=== PATIENT | female | born 1955 | race Two or more races ===

== ENCOUNTER 2024-02-23 09:52 | Emergency (ER) | payer MEDICAID, SELFPAY ==
[2024-02-23 10:37] VITALS: BP 144/87; PULSE 72; RESP 17; TEMP 36.6; O2SAT 98; BMI 27.1
--- NOTE | 2024-02-23 10:57 | PD.EDRME ---
Rapid Medical Screening Exam RME Arrival date/time: 02/23/24 09:52 68-year-old female presents emergency department with complaints lower pelvic pain that radiates into her flank area. Patient does report that that a couple days ago she did have a biopsy unsure if bladder or uterus. Since then she has not been feeling well. I have greeted and performed a focused initial assessment of this patient. Initial appropriate labs ordered at this time. A comprehensive ED assessment and evaluation of the patient and analysis of all test and completion of medical decision making process will be conducted by additional ED provider. Chief Complaint: Urogenital-Female Time Seen by Provider: 02/23/24 10:18 Vital signs: Vital Signs Temperature 97.9 F 02/23/24 10:37 Pulse Rate 72 02/23/24 10:37 Respiratory Rate 17 02/23/24 10:37 Blood Pressure 144/87 H 02/23/24 10:37 Pulse Oximetry (%) 98 02/23/24 10:37 Oxygen Delivery Method Room Air 02/23/24 10:37
--- NOTE | 2024-02-23 11:01 | XR_ITS ---
Examination: Pelvic ultrasound, transabdominal, complete Technique: Transabdominal ultrasound of the pelvis performed using grayscale imaging Date and time of exam: February 23, 2024 1206 hrs. Indications: Onset of pelvic pain beginning one day ago Findings: Uterus 9.4 x 3.9 x 5.7 cm Uterine body 21 x 25 mm mass Hyperechoic mass in the endometrium 5 x 4 mm Endometrial sign 0.9 cm Right ovary 2.4 x 2.2 cm arterial flow Left ovary 2.4 x 2.1 cm arterial flow No fluid in the cul-de-sac Impression: Uterine body area of fibroid degeneration Likely small endometrial polyp Negative for ovarian torsion
[2024-02-23 11:22] LABS: Basophils # (Auto) 0.1 Thou/mm3 (0.0-0.2); Basophils % (Auto) 1 % (0-2.5); Eosinophils # (Auto) 0.1 Thou/mm3 (0.0-0.5); Eosinophils % (Auto) 1 % (0-10); Hematocrit 40.2 % (36.0-46.0); Hemoglobin 13.1 g/dL (12.0-16.0); Immature Granulocytes % (Auto) 0 % (0-0); Immature Granulocytes Auto 0.02 Thou/mm3 (0.00-0.00); Lymphocytes # (Auto) 2.1 Thou/mm3 (1.0-4.8); Lymphocytes % (Auto) 26 % (10-50); Mean Corpuscular HGB Conc 32.6 g/dl (31.0-37.0); Mean Corpuscular Hemoglobin 25.7 pg (25.0-35.0); Mean Corpuscular Volume 79 fL (80-100); Monocytes # (Auto) 0.6 Thou/mm3 (0.0-0.8); Monocytes % (Auto) 7 % (0-12); Neutrophils # (Auto) 5.4 Thou/mm3 (1.8-7.7); Neutrophils % (Auto) 65 % (37-80); Nucleated Red Blood Cell % 0 /100 WBC (0); Platelet Count 326 Thou/mm3 (140-440); RDW Standard Deviation 35.7 fL (36.4-46.3); White Blood Count 8.3 Thou/mm3 (3.6-11.0)
[2024-02-23 11:40] LABS: Collection Type, Urine Clean Catch; Squamous Epithelial Cell,Urine 0 /hpf (0-5)
[2024-02-23 11:43] LABS: Alanine Aminotransferase 19 U/L (10-49); Albumin, Serum 4.9 gm/dL (3.4-4.8); Albumin/Globulin Ratio 1.4 (1.2-2.2); Alkaline Phosphatase 84 U/L (46-116); Anion Gap 7 (7-16); Aspartate Amino Transferase 23 U/L (0-34); BUN/Creatinine Ratio 13 Ratio (12-20); Bilirubin,Total 1.4 mg/dL (0.3-1.2); Blood Urea Nitrogen 10 mg/dL (9-23); Calcium 9.5 mg/dL (8.3-10.6); Calcium (Corrected) 9.5 mg/dL (8.5-10.1); Carbon Dioxide 28.5 mMol/L (20.0-31.0); Chloride 102 mMol/L (98-107); Creatinine (Component) 0.8 mg/dL (0.6-1.3); Estimated Creatinine Clearance 62.1 mL/min (>60); Globulin 3.5 gm/dL (2.3-3.5); Glucose 103 mg/dL (74-106); Osmolality,Calculated 272 (275-295); Potassium 3.8 mMol/L (3.4-5.1); Sodium 137 mMol/L (136-145); Total Protein 8.4 gm/dL (5.7-8.2); eGFR > 60 See Note
[2024-02-23 12:17] LABS: Bacteria,Urine Rare; Bilirubin,Urine Negative (Negative); Blood,Urine 2+ (Negative); Clarity,Urine Clear (Clear/Hazy); Color,Urine Colorless (Lt Yel-Yel); Glucose, Urine Negative (Negative); Ketones,Urine Negative (Negative); Leukocyte Esterase,Urine Positive (Negative); Nitrite,Urine Negative (Negative); Protein,Urine Negative (Neg - Trace); RBC,Urine 1 /hpf (0-3); Specific Gravity,Urine 1.004 (1.001-1.035); Transitional Epi Cells,Urine < 1 /hpf (0-5); Urobilinogen,Urine Negative mg/dL (0.0-1.0); WBC,Urine 18 /hpf (0-5)
--- NOTE | 2024-02-23 15:50 | EDNOTE_ITS ---
ED Female Urogenital RME/HPI General Chief complaint: Urogenital-Female Stated complaint: urinary infection. pain since yesterday Time Seen by Provider: 02/23/24 10:18 Arrival date/time: 02/23/24 09:52 Limitations: no limitations RME / HPI RME / HPI Narrative: 02/23/24 09:52 68-year-old female presents emergency department with complaints lower pelvic pain that radiates into her flank area. Patient does report that that a couple days ago she did have a biopsy unsure if bladder or uterus. Since then she has not been feeling well. I have greeted and performed a focused initial assessment of this patient. Initial appropriate labs ordered at this time. A comprehensive ED assessment and evaluation of the patient and analysis of all test and completion of medical decision making process will be conducted by additional ED provider. DR. PASCUAL ERNANDEZ ED EVALUATION: 68-year-old female with a history of frequent UTIs, presents to the Emergency Department with complaint of dysuria starting last night and a urinary tract infection. She notes a biopsy of her bladder that was done approximately two months ago in [place] with her primary care doctor to assess why she gets frequent UTIs . She denies vaginal bleeding or vaginal discharge. Her last menstrual period was over 20 years ago, but she said she was a very heavy bleeder during those times and would bleed for several days. She denies fevers or sweats. She notes that she is traveling to [facility] for two months in a couple of days and just wants to make sure she has antibiotics if she needs. Related Data Allergies Allergy/AdvReac Type Severity Reaction Status Date / Time No Known Allergies Allergy Verified 02/23/24 09:54 Review of Systems Review of Systems Systems Reviewed: All systems reviewed, normal except as documented Narrative Review of Systems: GEN: No fever, no chills, no weight loss EYES: No discharge, no visual changes, no pain HEENT: No ear pain, no congestion, no sore throat PULM: No shortness of breath, no cough, no congestion CV: No chest pain, no dyspnea on exertion, no palpitations GI: No nausea, no vomiting, no diarrhea, no pain, no constipation : + dysuria, + UTI MUSC/SKEL: No joint pain, no back pain SKIN: No rash PSYCH: No hallucinations, no depression HEME/LYMPH: No easy bleeding or bruising tendencies NEURO: No weakness, no headache Past Medical History Social History SMOKING STATUS: Never smoker SUBSTANCE USE: does not use ALCOHOL: Never Past Medical History Comments PMH COMMENT: Frequent UTIs ED Exam General Limitations: Present no limitations General appearance: Present alert and in no apparent distress Head Head exam: Present atraumatic, normocephalic and normal inspection Eye Eye exam: Present normal appearance, PERRL and EOMI ENT ENT exam: Present normal exam, normal oropharynx and mucous membranes moist Neck Neck exam: Present normal inspection, full ROM and trachea midline Chest Chest inspection: Present normal inspection and symmetric chest wall rise Respiratory Respiratory exam: Present normal lung sounds bilaterally Cardiovascular Cardiovascular exam: Present regular rate, normal rhythm and normal heart sounds Abdominal Exam Abdominal exam: Present soft and normal bowel sounds Extremities Exam Extremities exam: Present normal inspection and full ROM Back Exam Back exam: Present normal inspection and full ROM Neurological Exam Neurological exam: Present alert, oriented X3 and CN II-XII intact Psychiatric Psychiatric exam: Present normal affect and normal mood Skin Skin exam: Present warm, dry, intact and normal color Course Quality Measures none Orders Category Date Time Status US pelvic complete Stat Exams 02/23/24 11:01 Completed CBC Stat Lab 02/23/24 11:14 Completed CMP [Comprehensive Metabolic Panel] Stat Lab 02/23/24 11:14 Completed Urinalysis Stat Lab 02/23/24 11:18 Completed Urine Culture Stat Lab 02/23/24 11:18 Completed Vital Signs Vital signs: Vital Signs Temperature 97.9 F 02/23/24 10:37 Pulse Rate 72 02/23/24 10:37 Respiratory Rate 17 02/23/24 10:37 Blood Pressure 144/87 H 02/23/24 10:37 Pulse Oximetry (%) 98 02/23/24 10:37 Oxygen Delivery Method Room Air 02/23/24 10:37 Urogenital - Female MDM Narrative MDM Narrative:: ICindy am scribing for and in the presence of Dr. Sharma. Patient data External records reviewed:: None (no previous visits) Clinical information provided by:: patient Social determinants that could affect healthcare access:: none Patient has the following chronic illnesses:: History of frequent UTIs, had a biopsy of her bladder that was done approximately two months ago in [place] with her primary care doctor to assess why she gets frequent UTIs . How is presenting disease/condition affected by chronic disease/condition?: exacerbated by Evaluation data The following diagnostics were reviewed and interpreted by me:: lab results and radiology exam(s) Lab and/or radiology exams considered but not ordered:: none Interpretation Summary: Procedure(s): US pelvic complete Accession Number(s): [id number] cc: Victor Hugo Diego MD; NO PRIMARY/FAMILY,PHYSICIAN; Joanna Warner~ Examination: Pelvic ultrasound, transabdominal, complete Technique: Transabdominal ultrasound of the pelvis performed using grayscale imaging Date and time of exam: February 23, 2024 1206 hrs. Indications: Onset of pelvic pain beginning one day ago Findings: Uterus 9.4 x 3.9 x 5.7 cm Uterine body 21 x 25 mm mass Hyperechoic mass in the endometrium 5 x 4 mm Endometrial sign 0.9 cm Right ovary 2.4 x 2.2 cm arterial flow Left ovary 2.4 x 2.1 cm arterial flow No fluid in the cul-de-sac Impression: Uterine body area of fibroid degeneration Likely small endometrial polyp Negative for ovarian torsion Dictated By: Victor Hugo Diego MD Medications / Prescriptions Medications or Prescriptions considered but not ordered:: none Medication administrations:: none Consultations Consultation(s) initiated? (list below): No Diagnosis Urogenital Female Differential Diagnosis: urinary tract infection, bacterial vaginosis, cystitis and other (UTI) Most likely diagnosis given after review of the tests above:: Dysuria Chronic female pelvic pain Admission Indicated Admission indicated?: not indicated Admission Request Was there a request for admission?: No Disposition Plan Disposition Plan: Discharge Discharge Attestation Discharge Attestation: The patient and all family members were given an opportunity to ask questions and understood the discharge instructions. Discharge instructions specifically effects, indications for sooner follow up or return to the emergency department, and the expected course of current diagnosis. Patient condition: Stable Discharge Plan Plan Patient Disposition: HOME (Self Care) Prescriptions/Referrals Referrals: No Primary/Family,Physician [Primary Care Provider] - In 1 week Problem List Clinical Impression: Dysuria, Chronic female pelvic pain Patient/Caregiver Discharge Instructions Education Materials: ED Dysuria, Uncertain Cause (Adult) Additional Instructions: Follow-up with your primary doctor in 2-3 days if symptoms are not improving. You can return to the emergency department sooner symptoms worsen or if you notice any new, concerning issues. Print Language: Turkmen Stand Alone Forms: Stephanie Award Info., Patient Portal Info Letter
--- NOTE | 2024-02-23 15:53 | PC.NURSE ---
PT HERE WITH URINARY SYMPTOMS AND CURRENTLY WAITING OR MD TO FINISH DISCHARGE INSTRUCTIONS
== END 2024-02-23 16:00 | disposition home or self-care (01) ==
PROVIDERS: Nurse Practitioner Primary Care; Emergency Provider Emergency Medicine
DX: D25.9 Leiomyoma of uterus, unspecified (principal); R30.0 Dysuria
CPT/HCPCS: 36415; 76856; 80053; 81001; 85025; 87077; 87086; 87186; 99284

== ENCOUNTER → 2025-01-27 | Outpatient (CLI) | payer OTHER, MEDICAID, SELFPAY ==
[2025-01-27 10:24] LABS: Basophils # (Auto) 0.1 Thou/mm3 (0.0-0.2); Basophils % (Auto) 1 % (0-2.5); Eosinophils # (Auto) 0.1 Thou/mm3 (0.0-0.5); Eosinophils % (Auto) 3 % (0-10); Hematocrit 38.1 % (36.0-46.0); Hemoglobin 12.2 g/dL (12.0-16.0); Immature Granulocytes Auto 0.01 Thou/mm3 (0.00-0.00); Lymphocytes # (Auto) 2.1 Thou/mm3 (1.0-4.8); Lymphocytes % (Auto) 37 % (10-50); Mean Corpuscular HGB Conc 32.0 g/dl (31.0-37.0); Mean Corpuscular Hemoglobin 25.6 pg (25.0-35.0); Mean Corpuscular Volume 80 fL (80-100); Monocytes # (Auto) 0.5 Thou/mm3 (0.0-0.8); Monocytes % (Auto) 9 % (0-12); Neutrophils # (Auto) 2.8 Thou/mm3 (1.8-7.7); Neutrophils % (Auto) 51 % (37-80); Nucleated Red Blood Cell # 0.00 Thou/mm3 (0.00-0.00); Nucleated Red Blood Cell % 0 /100 WBC (0); Platelet Count 330 Thou/mm3 (140-440); RDW Standard Deviation 36.1 fL (36.4-46.3); Red Blood Count 4.77 Miln/mm3 (4.00-5.20); White Blood Count 5.6 Thou/mm3 (3.6-11.0)
[2025-01-27 10:40] LABS: Alanine Aminotransferase 17 U/L (10-49); Albumin, Serum 4.4 gm/dL (3.4-4.8); Albumin/Globulin Ratio 1.6 (1.2-2.2); Alkaline Phosphatase 80 U/L (46-116); Anion Gap 9 (7-16); Aspartate Amino Transferase 21 U/L (0-34); BUN/Creatinine Ratio 17 Ratio (12-20); Bilirubin,Total 0.8 mg/dL (0.3-1.2); Blood Urea Nitrogen 15 mg/dL (9-23); Calcium 8.9 mg/dL (8.3-10.6); Calcium (Corrected) 8.9 mg/dL (8.5-10.1); Carbon Dioxide 28.7 mMol/L (20.0-31.0); Cardiac Risk Estimate 4.4 RATIO (3.7-5.6); Chloride 106 mMol/L (98-107); Cholesterol 204 mg/dL (132-200); Creatinine (Component) 0.9 mg/dL (0.6-1.3); Globulin 2.8 gm/dL (2.3-3.5); Glucose 95 mg/dL (74-106); HDL Cholesterol 46 mg/dL (40-60); LDL Cholesterol,Calculated 130 mg/dL (0-130); Osmolality,Calculated 287 (275-295); Potassium 4.4 mMol/L (3.4-5.1); Sodium 144 mMol/L (136-145); Thyroid Stimulating Hormone 0.81 uIU/mL (0.55-4.78); Total Protein 7.2 gm/dL (5.7-8.2); Triglycerides 140 mg/dL (30-150); eGFR > 60 See Note
== END | disposition home or self-care (01) ==
LOC: COPL 09:03
PROVIDERS: PCP Family Medicine; Referring Provider Family Medicine; Visit Provider Family Medicine
DX: N85.8 Other specified noninflammatory disorders of uterus (principal); Z13.220 Encounter for screening for lipoid disorders
CPT/HCPCS: 36415; 80053; 80061; 84443; 85025

== ENCOUNTER → 2025-02-09 | Outpatient (CLI) | payer OTHER, MEDICAID, SELFPAY ==
--- NOTE | 2025-02-09 09:45 | XR_ITS ---
Examination: Pelvic ultrasound, transabdominal, complete Technique: Transabdominal ultrasound of the pelvis performed using grayscale imaging Date and time of exam: February 09, 2025, 0956 hours INDICATIONS: Pelvic sonogram February 23, 2024 uterine body area fibroid degeneration 25 mm and endometrial polyp 5 mm FINDINGS: Uterus 8.1 cm uterine body area fibroid degeneration 19 x 15 x 19 mm Small polyp in the endometrium 8 x 5 x 5 mm Endometrial stripe 1.0 cm Right ovary 1.9 cm arterial flow. Left ovary obscured by bowel gas IMPRESSION: Small uterine area of fibroid body degeneration 19 x 15 x 19 mm Endometrial polyp 8 x 5 x 5 mm
== END | disposition home or self-care (01) ==
PROVIDERS: PCP Family Medicine; Referring Provider Family Medicine; Visit Provider Family Medicine
DX: D25.9 Leiomyoma of uterus, unspecified (principal); N84.0 Polyp of corpus uteri
CPT/HCPCS: 76856